=== PATIENT | male | born 1940 | race African-American/Black ===

== ENCOUNTER 2017-08-24 10:17 | Inpatient (IN) | payer OTHER ==
[2017-08-24] MEDS ORDERED: MORPHINE 4 MG/ML SYR ONE ×3 (10:59→12:52)
[2017-08-24] MEDS ORDERED: NA CHLORIDE 0.9% 1,000 ML ONE (11:00)
[2017-08-24] MEDS ORDERED: ONDANSETRON 4 MG/2 ML VIAL ONE (11:00)
[2017-08-24] MEDS ORDERED: ONDANSETRON 4 MG (ODT) TAB ONE (11:22)
[2017-08-24 11:25] LABS: Absolute Lymphocytes (CBC) 4.3 K/uL (0.7-4.9); Absolute Monocytes 7.7 K/uL (0.1-1.3); Basophils % 0.5 % (0-1.3); Eosinophils % 0.8 % (0-4.4); Hematocrit 36.9 % (39.6-49.0); Lymphocytes % 5.4 % (15.3-44.8); MCV 80.8 fL (80-100); MPV 8.5 fL (7.6-11.3); Monocytes % 9.8 % (3.3-12.3); RBC Red Blood Cell Count 4.57 M/uL (4.33-5.43)
[2017-08-24 11:36] LABS: Potassium 4.1 mEq/L (3.6-5.0)
[2017-08-24 11:42] LABS: Albumin 4.6 g/dL (3.2-5.5); Bilirubin Direct 0.3 mg/dL (0-0.2); Bilirubin Total 0.9 mg/dL (0.3-1.2); Protein, Total 7.8 g/dL (6.0-8.3)
--- NOTE | 2017-08-24 12:30 | RAD REPORT ---
EXAM DESCRIPTION: RAD - Abdomen 1 View (KUB) - 08/24/2017 11:42 am CLINICAL HISTORY: Abdominal pain and distention. COMPARISON: None. FINDINGS: Multiple dilated small bowel loops are seen in the central abdomen compatible with a mecha nical bowel obstruction. No pneumoperitoneum seen. No suspicious calcifications. No significant bony findings. Pacer/defibrillator wires are present. IMPRESSION: Mechanical small-bowel obstruction is suspected. CT is pending at the time of this dicta tion.
[2017-08-24 12:39] LABS: Anisocytosis 2+; Blood Morphology Comment NOTED (NOT SEEN); Platelet Estimate ADEQ; Platelets, Giant FEW
--- NOTE | 2017-08-24 14:11 | RAD REPORT ---
EXAM DESCRIPTION: CT - Abdomen Pelvis Wo Contrast - 08/24/2017 1:49 pm CLINICAL HISTORY: Abdominal pain mid abdominal pain times several hours. Nausea COMPARISON: 2013 cat scan X-ray August 24, 2017 TECHNIQUE: Computed axial tomography of the abdomen and pelvis was obtained. IV contrast was not req uested. Oral contrast was given All CT scans are performed using dose optimization technique as appropriate and may include automated exposure control or mA/KV adjustment according to patient size. FINDINGS: The evaluation of solid organs, and vessels is limited secondary to the lack of contrast administration. A couple of hepatic granulomata are seen. Spleen, pancreas and adrenals appear grossly normal. A couple tiny nonobstructing bilateral renal calculi are seen. There is no evidence of diverticulitis. The stomach is mildly distended. Contrast is present within the distal esophagus. The small bowel caliber is normal. Atherosclerotic changes are visualized. The prostate gland is mildly to moderately enlarged. IMPRESSION: Tiny nonobstructing renal calculi Mild gastric distention Contrast in the esophagus probably indicates GE reflux
[2017-08-24] MEDS ORDERED: ALBUTEROL 2.5 MG/3 ML NEB SOL ONE (15:29)
[2017-08-24] MEDS ORDERED: FUROSEMIDE 40 MG/4 ML VIAL ONE (15:29)
[2017-08-24] MEDS ORDERED: METOCLOPRAMIDE 10 MG/2mL INJ ONE (15:29)
--- NOTE | 2017-08-24 15:35 | ER ---
Nurse's Notes [facility] Name: Otoniel Aquino Age: 77 yrs Sex: Male : 1940 Arrival Date: 08/24/2017 Time: 10:20 Bed 7 Private MD: Diagnosis: Abdominal and pelvic pain;Gastroparesis;Gastric Distension Presentation: 08/24 10:21 Presenting complaint: Patient states: around 2 am today, i was awaken by the pain on hj the middle of my stomach, reports nausea, denies vomiting; pain is diffuse; denies constipation and diarrhea; denies fever and chills;. Transition of care: patient was not received from another setting of care. Onset of symptoms was August 24, 2017. Care prior to arrival: None. 10:21 Method Of Arrival: Ambulatory 10:21 Acuity: DANA 3 hj Triage Assessment: 10:25 General: Appears in no apparent distress. uncomfortable, Behavior is calm, cooperative, hj appropriate for age. Pain: Complains of pain in abdomen. GI: Reports lower abdominal pain, upper abdominal pain, nausea. Historical: - Allergies: 10:25 ROSALIE INHIBITORS; hj 10:25 Sulfa (Sulfonamide Antibiotics); hj - Home Meds: 10:25 allopurinol 300 mg Oral tab 1 tab once daily [Active]; atorvastatin 40 mg Oral tab 1 hj tab once daily [Active]; furosemide 40 mg Oral tab 1 tab 2 times per day [Active]; glipizide 10 mg Oral tab 1 tab 2 times per day [Active]; hydralazine 50 mg Oral tab three times a day [Active]; isosorbide dinitrate 10 mg Oral tab 1 tab 2 times per day [Active]; metoprolol succinate 200 mg Oral Tb24 1 tab once daily [Active]; omeprazole 20 mg Oral cpDR 1 cap once daily [Active]; saxagliptin 5 mg Oral once daily [Active]; spironolactone 25 mg Oral tab 1 tab once daily [Active]; tiotropium bromide inhalation once daily [Active]; warfarin 5 mg Oral tab 1 tab once daily [Active]; - PMHx: 10:25 CHF; Diabetes - NIDDM; Hypertension; hj - PSHx: 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 - Social history:: Patient/guardian denies using tobacco products, Smoking status: Patient/guardian denies using tobacco. Screenin:22 Abuse screen: Denies threats or abuse. Nutritional screening: No deficits noted. tl3 Tuberculosis screening: No symptoms or risk factors identified. Fall Risk None identified. Assessment: 10:25 GI: Bowel sounds Abdomen is tender to palpation. hj 11:22 General: Appears distressed, uncomfortable, well groomed, well developed, well tl3 nourished, Behavior is cooperative, appropriate for age, restless. Pain: Complains of pain in abdomen Pain currently is 10 out of 10 on a pain scale. Neuro: Level of Consciousness is awake, alert, obeys commands, Oriented to person, place, time, situation, Appropriate for age. Cardiovascular: Heart tones S1 S2 present Capillary refill < 3 seconds. Respiratory: Airway is patent Trachea midline Respiratory effort is even, labored, Respiratory pattern is regular, symmetrical. GI: Bowel sounds diminished in right upper quadrant, left upper quadrant, right lower quadrant and left lower quadrant. : No signs and/or symptoms were reported regarding the genitourinary system. EENT: No signs and/or symptoms were reported regarding the EENT system. Derm: No signs and/or symptoms reported regarding the dermatologic system. Musculoskeletal: No signs and/or symptoms reported regarding the musculoskeletal system. 11:46 Reassessment: CODEY Coleman notified of critical value, WBC [id number]. ss 12:50 Reassessment: Patient appears in no apparent distress at this time. No changes from tl3 previously documented assessment. Patient and/or family updated on plan of care and expected duration. Pain level reassessed. Patient is alert, oriented x 3, equal unlabored respirations, skin warm/dry/pink. family at bedside. Reassessment: Patient appears in no apparent distress at this time. 13:28 Reassessment: Patient appears in no apparent distress at this time. No changes from tl3 previously documented assessment. Patient and/or family updated on plan of care and expected duration. Pain level reassessed. Patient is alert, oriented x 3, equal unlabored respirations, skin warm/dry/pink. 14:30 Reassessment: Patient appears in no apparent distress at this time. No changes from tl3 previously documented assessment. Patient and/or family updated on plan of care and expected duration. Pain level reassessed. Patient is alert, oriented x 3, equal unlabored respirations, skin warm/dry/pink. pt comfortable at this time, family at bedside. 15:32 Reassessment: NG placed, pt tolerated procedure very well, immediate return of 500ml of tl3 gastric secretions. 16:30 Reassessment: Patient and/or family updated on plan of care and expected duration. Pain tl3 level reassessed. Patient is alert, oriented x 3, equal unlabored respirations, skin warm/dry/pink. pt feeling better, removed 600ml of gastric fluids. 18:33 Reassessment: attempted to wean pt off of non re-breather, O2 sats dropped to 88% on 3 tl3 L/M oxygen. placed back on non re-breather sats went up to 95% before being brought up to his room. Vital Signs: 10:25 BP 123 / 80; Pulse 93; Resp 18; Temp 99.1(TE); Pulse Ox 95% on R/A; Weight 75.75 kg; hj Height 5 ft. 9 in. (175.26 cm); Pain 10/10; 11:22 BP 145 / 63; Pulse 91; Resp 18; Pulse Ox 96% on R/A; tl3 13:35 BP 141 / 79; Pulse 96; Resp 21; Pulse Ox 95% on Non-rebreather mask; mh5 14:31 BP 141 / 91; Pulse 93; Resp 18; Pulse Ox 97% ; tl3 16:30 BP 124 / 78; Pulse 107; Resp 18; Pulse Ox 95% on Non-rebreather mask; tl3 18:33 BP 138 / 79; Pulse 96; Resp 22; Pulse Ox 95% on Non-rebreather mask; tl3 10:25 Body Mass Index 24.66 (75.75 kg, 175.26 cm) ED Course: 10:20 Patient arrived in ED. rg4 10:23 Triage completed. hj 10:25 Arm band placed on right wrist. hj 10:28 Matteo Tom PA is PHCP. jr8 10:28 Rohan Kothari MD is Attending Physician. jr8 10:37 Cary Kim, RN is Primary Nurse. tl3 10:40 Radiology exam delayed due to IV insertion attempt and/or patient not having sw appropriate IV at this time. 10:51 Note: stated they would call [id number] when ready. sw 11:12 Oral contrast given. sj 11:15 Inserted saline lock: 20 gauge in left antecubital area, using aseptic technique. Blood ss collected. 11:22 Appears restless. Awaiting lab results, Awaiting radiology results. tl3 11:22 Patient has correct armband on for positive identification. Placed in gown. Bed in low tl3 position. Call light in reach. Side rails up X 1. Adult w/ patient. administrative job titles on. Pulse ox on. NIBP on. Warm blanket given. 11:22 No provider procedures requiring assistance completed. Missed attempt(s): 22 gauge tl3 Bleeding controlled, band aid applied, catheter tip intact. 11:30 Lactate Sent. tl3 11:31 Basic Metabolic Panel Sent. tl3 11:31 CBC with Diff Sent. tl3 11:31 Creatinine for Radiology Sent. tl3 11:31 Hepatic Function Sent. tl3 11:31 Lipase Sent. tl3 11:53 EKG done, by earth science laboratory technician. reviewed by Matteo ALEGRE. at1 12:35 Oxygen administration via nasal cannula pt O2 levels dropped to 84%, Provider informed, tl3 nasal cannula placed at 3 L/M o2 sats up to 88%, gplaced on non re breather at 15 L/M with O2 sats increasing to 95%. 13:[address] via stretcher. tl3 13:49 CT completed. Patient tolerated procedure well. Patient moved back from CT. nj 15:05 Radiology exam delayed due to Procedure being performed. Asked to return in 10 minutes. kw1 15:31 NGT: inserted 16 Fr. via right nare. verified placement of air over stomach, Placement tl3 verified by X-ray, to intermittent suction. Returned gastric contents. 15:34 Klarissa Pacheco MD is Hospitalizing Provider. jr8 17:41 Urine Dipstick--Ancillary (enter results) Sent. tl3 18:04 Patient admitted, IV remains in place. tl3 Administered Medications: 11:10 Drug: Zofran 4 mg Route: PO; tl3 11:38 Follow up: Response: No adverse reaction tl3 11:15 Drug: morphine 4 mg Route: IVP; Infused Over: 3 mins; Site: left antecubital; tl3 11:37 Follow up: Response: No adverse reaction; Pain is decreased tl3 11:29 Drug: NS 0.9% 1000 ml Route: IV; Rate: 100 ml/hr; Site: left femoral; Delivery: Primary tl3 tubing; 11:30 CANCELLED (no IV access): Zofran 4 mg IVP once; over 2 minutes tl3 12:25 Drug: morphine 4 mg Route: IVP; Infused Over: 3 mins; Site: left forearm; tl3 14:20 Follow up: Response: Pain is decreased tl3 15:25 Drug: Reglan 10 mg Route: IVP; Infused Over: 3 mins; Site: left antecubital; tl3 16:28 Follow up: Response: No adverse reaction tl3 15:29 Drug: Lasix 40 mg Route: IVP; Infused Over: 3 mins; Site: left antecubital; tl3 16:28 Follow up: Response: No adverse reaction tl3 15:35 Drug: Albuterol 2.5 mg Route: Inhalation; tl3 Point of Care Testing: Blood Glucose: 17:57 Blood Glucose: 163 mg/dL; tl3 Ranges: Outcome: 15:34 Decision to Hospitalize by Provider. jr8 17:57 Admitted to Tele accompanied by tech, via stretcher, with oxygen. tl3 18:03 Condition: stable tl3 18:38 Patient left the ED. tl3 Signatures: Misti Lobato Shelby, RN RN Matteo Jacobsen PA PA jr8 Monica reaves, electrician control equipment EKG Tat1 Alexandra Echavarria Henry, RN RN hj Garcia, Rubi 4 Vlad Doty [facility] Orquidea Nieves 1 Cary Kim RN RN tl3 Corrections: (The following items were deleted from the chart) 10:27 10:25 Pulse 76bpm; Resp 18bpm; Pulse Ox 100% RA; Temp 99.1F Temporal; 75.75 kg; Height hj 5 ft. 9 in.; BMI: 24.6; Pain 10/; hj 18:33 18:32 Reassessment: Patient and/or family updated on plan of care and expected tl3 duration. Pain level reassessed. Patient is alert, oriented x 3, equal unlabored respirations, skin warm/dry/pink. pt just returned from CT, c/o increased pain tl3
--- NOTE | 2017-08-24 15:35 | EDPHYS ---
Physician Documentation [facility] Name: Otoniel Aquino Age: 77 yrs Sex: Male : 1940 Arrival Date: 08/24/2017 Time: 10:20 Bed 7 Private MD: ED Physician Rohan Kothari HPI: 08/24 10:49 This 77 yrs old Black Male presents to ER via Ambulatory with complaints of Abdominal jr8 Pain. 10:49 The patient presents with abdominal pain that is diffuse. Onset: The symptoms/episode jr8 began/occurred acutely, this morning. The symptoms radiate to back. Associated signs and symptoms: Pertinent positives: nausea. The symptoms are described as constant, dull. Modifying factors: The symptoms are alleviated by nothing, the symptoms are aggravated by nothing. Severity of pain: At its worst the pain was moderate in the emergency department the pain is unchanged. The patient has not experienced similar symptoms in the past. The patient has not recently seen a physician. Historical: - Allergies: 10:25 ROSALIE INHIBITORS; hj 10:25 Sulfa (Sulfonamide Antibiotics); hj - Home Meds: 10:25 allopurinol 300 mg Oral tab 1 tab once daily [Active]; atorvastatin 40 mg Oral tab 1 hj tab once daily [Active]; furosemide 40 mg Oral tab 1 tab 2 times per day [Active]; glipizide 10 mg Oral tab 1 tab 2 times per day [Active]; hydralazine 50 mg Oral tab three times a day [Active]; isosorbide dinitrate 10 mg Oral tab 1 tab 2 times per day [Active]; metoprolol succinate 200 mg Oral Tb24 1 tab once daily [Active]; omeprazole 20 mg Oral cpDR 1 cap once daily [Active]; saxagliptin 5 mg Oral once daily [Active]; spironolactone 25 mg Oral tab 1 tab once daily [Active]; tiotropium bromide inhalation once daily [Active]; warfarin 5 mg Oral tab 1 tab once daily [Active]; - PMHx: 10:25 CHF; Diabetes - NIDDM; Hypertension; hj - PSHx: 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 - Social history:: Patient/guardian denies using tobacco products, Smoking status: Patient/guardian denies using tobacco. ROS: 10:49 Eyes: Negative for injury, pain, redness, and discharge, ENT: Negative for injury, jr8 pain, and discharge, Neck: Negative for injury, pain, and swelling, Cardiovascular: Negative for chest pain, palpitations, and edema, Respiratory: Negative for shortness of breath, cough, wheezing, and pleuritic chest pain, Back: Negative for injury and pain, MS/Extremity: Negative for injury and deformity, Skin: Negative for injury, rash, and discoloration, Neuro: Negative for headache, weakness, numbness, tingling, and seizure. 10:49 Abdomen/GI: Positive for abdominal pain, nausea, Negative for vomiting, diarrhea, constipation, abdominal cramps, abdominal distension, anorexia, dysphagia, hematemesis, black/tarry stool, rectal pain, rectal bleeding, bowel incontinence, flatulence. Exam: 10:49 Eyes: Pupils equal round and reactive to light, extra-ocular motions intact. Lids and jr8 lashes normal. Conjunctiva and sclera are non-icteric and not injected. Cornea within normal limits. Periorbital areas with no swelling, redness, or edema. ENT: Nares patent. No nasal discharge, no septal abnormalities noted. Tympanic membranes are normal and external auditory canals are clear. Oropharynx with no redness, swelling, or masses, exudates, or evidence of obstruction, uvula midline. Mucous membranes moist. Cardiovascular: Regular rate and rhythm with a normal S1 and S2. No gallops, murmurs, or rubs. Normal PMI, no JVD. No pulse deficits. Respiratory: Lungs have equal breath sounds bilaterally, clear to auscultation and percussion. No rales, rhonchi or wheezes noted. No increased work of breathing, no retractions or nasal flaring. Back: No spinal tenderness. No costovertebral tenderness. Full range of motion. Skin: Warm, dry with normal turgor. Normal color with no rashes, no lesions, and no evidence of cellulitis. MS/ Extremity: Pulses equal, no cyanosis. Neurovascular intact. Full, normal range of motion. Neuro: Awake and alert, GCS 15, oriented to person, place, time, and situation. Cranial nerves II-XII grossly intact. Motor strength 5/5 in all extremities. Sensory grossly intact. Cerebellar exam normal. Normal gait. 10:49 Abdomen/GI: Inspection: abdomen appears normal, Bowel sounds: diminished, in all quadrants, Palpation: soft, in all quadrants, moderate abdominal tenderness, in the abdomen diffusely, Indicators: McBurney's point is not tender, Angel's sign is negative, Rovsing's sign is negative, Liver: tenderness, is not appreciated. Vital Signs: 10:25 BP 123 / 80; Pulse 93; Resp 18; Temp 99.1(TE); Pulse Ox 95% on R/A; Weight 75.75 kg; hj Height 5 ft. 9 in. (175.26 cm); Pain 10/10; 11:22 BP 145 / 63; Pulse 91; Resp 18; Pulse Ox 96% on R/A; tl3 13:35 BP 141 / 79; Pulse 96; Resp 21; Pulse Ox 95% on Non-rebreather mask; mh5 14:31 BP 141 / 91; Pulse 93; Resp 18; Pulse Ox 97% ; tl3 16:30 BP 124 / 78; Pulse 107; Resp 18; Pulse Ox 95% on Non-rebreather mask; tl3 18:33 BP 138 / 79; Pulse 96; Resp 22; Pulse Ox 95% on Non-rebreather mask; tl3 10:25 Body Mass Index 24.66 (75.75 kg, 175.26 cm) hj MDM: 10:28 Patient medically screened. jr8 15:29 Data reviewed: vital signs, nurses notes, lab test result(s), radiologic studies, CT jr8 scan, plain films, and as a result, I will admit patient. Data interpreted: Pulse oximetry: on room air is 97 %. Interpretation: normal. Counseling: I had a detailed discussion with the patient and/or guardian regarding: the historical points, exam findings, and any diagnostic results supporting the discharge/admit diagnosis, lab results, radiology results, the need for further work-up and treatment in the hospital. ED course: Dr. Pacheco came and saw patient. Accepted for gastroparesis and intractable abdominal pain . 08/24 10:28 Order name: Basic Metabolic Panel 8 08/24 10:28 Order name: CBC with Diff 8 08/24 10:28 Order name: Creatinine for Radiology 8 08/24 10:28 Order name: Hepatic Function 08/24 10:28 Order name: Lipase jr8 08/24 10:34 Order name: Lactate 8 08/24 11:35 Order name: Creatinine (Radiology Only); Complete Time: 11:43 EDMS 08/24 11:37 Order name: Basic Metabolic Panel; Complete Time: 11:43 EDMS 08/24 11:37 Order name: Lipase; Complete Time: 11:43 EDMS 08/24 11:38 Order name: Lactate; Complete Time: 11:43 EDMS 08/24 11:43 Order name: Liver (Hepatic) Function; Complete Time: 11:43 EDMS 08/24 11:46 Order name: CBC with Automated Diff; Complete Time: 12:43 EDMS 08/24 12:41 Order name: Manual Differential; Complete Time: 12:43 EDMS 08/24 16:52 Order name: Urine Dipstick--Ancillary (enter results) ms 08/24 10:35 Order name: XRAY KUB [facility] 08/24 11:04 Order name: CT Abd/Pelvis - W/Contrast 8 08/24 11:52 Order name: EKG; Complete Time: 11:52 3 08/24 12:31 Order name: RAD; Complete Time: 12:44 EDMS 08/24 14:13 Order name: CT; Complete Time: 14:13 EDMS 08/24 14:45 Order name: XRAY Chest (1 view) [facility] 08/24 15:53 Order name: RAD; Complete Time: 16:15 EDMS 08/24 17:12 Order name: Urine Dipstick-Ancillary; Complete Time: 17:20 EDMS 08/24 10:28 Order name: IV Saline Lock; Complete Time: 11:31 8 08/24 10:28 Order name: Labs collected and sent; Complete Time: 11:31 8 08/24 10:28 Order name: Urine Dipstick-Ancillary (obtain specimen); Complete Time: 16:41 8 08/24 10:28 Order name: EKG - Nurse/Tech; Complete Time: 11:51 8 08/24 14:45 Order name: NG Tube; Complete Time: 15:34 jr8 Administered Medications: 11:10 Drug: Zofran 4 mg Route: PO; tl3 11:38 Follow up: Response: No adverse reaction tl3 11:15 Drug: morphine 4 mg Route: IVP; Infused Over: 3 mins; Site: left antecubital; tl3 11:37 Follow up: Response: No adverse reaction; Pain is decreased tl3 11:29 Drug: NS 0.9% 1000 ml Route: IV; Rate: 100 ml/hr; Site: left femoral; Delivery: Primary tl3 tubing; 11:30 CANCELLED (no IV access): Zofran 4 mg IVP once; over 2 minutes tl3 12:25 Drug: morphine 4 mg Route: IVP; Infused Over: 3 mins; Site: left forearm; tl3 14:20 Follow up: Response: Pain is decreased tl3 15:25 Drug: Reglan 10 mg Route: IVP; Infused Over: 3 mins; Site: left antecubital; tl3 16:28 Follow up: Response: No adverse reaction tl3 15:29 Drug: Lasix 40 mg Route: IVP; Infused Over: 3 mins; Site: left antecubital; tl3 16:28 Follow up: Response: No adverse reaction tl3 15:35 Drug: Albuterol 2.5 mg Route: Inhalation; tl3 Point of Care Testing: Blood Glucose: 17:57 Blood Glucose: 163 mg/dL; tl3 Ranges: Critical Glucose Levels:Adult <50 mg/dl or >400 mg/dl <40 mg/dl or >180 mg/dl Disposition: 18:46 Co-signature as Attending Physician, Rohan Kothari MD. rn Disposition: 08/24/17 15:34 Hospitalization ordered by Klarissa Pacheco for Observation. Preliminary diagnosis are Abdominal and pelvic pain, Gastroparesis, Gastric Distension . - Bed requested for Telemetry/MedSurg (observation). - Status is Observation. tl3 - Condition is Stable. - Problem is new. - Symptoms have improved. UTI on Admission? No Signatures: Dispatcher [employer] EDMarli Cha RN RN dw Nieto, Roman, MD MD rn Roszak, Josh, PA PA jr8 Max Hassan RN RN hj Lowrey, Tammy, RN RN tl3 Corrections: (The following items were deleted from the chart) 11:30 10:35 Zofran 4 mg IVP once; over 2 minutes ordered. jr8 tl3
--- NOTE | 2017-08-24 15:51 | P.HP ---
Certification for Inpatient Patient admitted to: Observation With expected LOS: <2 Midnights Patient will require the following post-hospital care: None Practitioner: I am a practitioner with admitting privileges, knowledge of patient current condition, hospital course, and medical plan of care. Services: Services provided to patient in accordance with Admission requirements found in Title 42 Section 412.3 of the Code of Federal Regulations Patient History Date of Service: 08/24/17 Primary Care Provider: None Reason for admission: Intractable Nausea and vomitting History of Present Illness: This is a 77-year-old male with significant past medical history of high blood pressure, diabetes, CLL, status post pacemaker placement who presented to the ED complaining of having some nausea vomiting and abdominal pain. Patient stated that the abdominal pain is generalized and started about 2-3 days ago it got progressively worse. Pain is intermittent and is more in the epigastric area than the other areas. Pain is dull in nature and does not radiate anywhere else. Patient also noted that he has been nauseous and is unable to tolerate any p.o. intake and had vomiting x1 at home as well. In the ED patient had a KUB done which was consistent with possible SBO and his abdominal CT which was concerning for gastric distention and no SBO. Medicine team was consulted to admit the patient for intractable nausea and vomiting along with gastric distention. Allergies ROSALIE Inhibitors Allergy (Verified 12/09/13 14:20) Shortness of breath Sulfa (Sulfonamide Antibiotics) Allergy (Unverified 01/28/17 13:02) Unknown Home Medications: Allopurinol 300 mg PO DAILY 01/28/17 Atorvastatin Calcium 20 mg PO BEDTIME 01/28/17 Glipizide [Glucotrol] 10 mg PO BID 01/28/17 Hydralazine HCl 50 mg PO TID 01/28/17 Isosorbide Dinitrate 10 mg PO BID 01/28/17 Metoprolol Succinate [Toprol Xl] 200 mg PO DAILY 01/28/17 Omeprazole 20 mg PO DAILY 01/28/17 Saxagliptin HCl [Onglyza] 5 mg PO DAILY 01/28/17 Spironolactone 25 mg PO DAILY 01/28/17 Tiotropium [Spiriva Handihaler*] 18 mcg IH DAILY 01/28/17 Warfarin Sodium 5 mg PO DAILY 01/28/17 Bosutinib [Bosulif] 400 mg PO DAILY 01/29/17 Furosemide 40 mg PO DAILY #30 01/29/17 Spironolactone [Aldactone*] 12.5 mg PO DAILY #15 tab 01/29/17 - Past Medical/Surgical History Diabetic: Yes -: HTN -: NEUROMUSCULAR DISEASE -: CML -: CHF -: PACEMAKER -: CATARACT SX R EYE -: VASCULAR SURGERY R LEG -: RIGHT BELOW KNEE AMPUTEE - Family History Father -: Heart disease, Hypertension Mother -: Heart disease, Hypertension, Diabetes - Social History Alcohol use: No CD- Drugs: No Caffeine use: Yes Review of Systems General: As per HPI Physical Examination - Physical Exam General: Alert, In no apparent distress, Cachectic HEENT: Atraumatic Neck: Supple Respiratory: Normal air movement, Crackles/rales Cardiovascular: Regular rate/rhythm, Normal S1 S2 Gastrointestinal: Normal bowel sounds, Distended, Tenderness Musculoskeletal: No tenderness Integumentary: No rashes Neurological: Normal speech, Normal strength at 5/5 x4 extr, Normal tone, Normal affect Lymphatics: No axilla or inguinal lymphadenopathy - Studies Laboratory Data (last 24 hrs) 08/24/17 11:15: Creatinine 1.56 H 08/24/17 11:15: WBC 79.0 H*, Hgb 11.9 L, Hct 36.9 L, Plt Count 526 H 08/24/17 11:15: Sodium 139, Potassium 4.1, BUN 30 H, Creatinine 1.56 H, Glucose 161 H, Total Bilirubin 0.9, AST 49 H, ALT 22, Alkaline Phosphatase 70, Lipase 20 L Assessment and Plan - Problems (Diagnosis) (1) Abdominal pain Current Visit: Yes Status: Acute Plan: Generalized Abd pain. Epigastric > then other area -KUB with possible SBO -CT with Gastric Distention -Most likely 2/2 Gastropresis -NG tube, NPO and Pain meds. -Will get Gastric Emptying study Qualifiers: Abdominal location: generalized Qualified Code(s): R10.84 - Generalized abdominal pain (2) Intractable nausea and vomiting Current Visit: Yes Status: Acute Plan: Most likely 2.2 to gastropresis -NPO -Zofran PRN and Reglan Qualifiers: Vomiting type: unspecified Qualified Code(s): R11.2 - Nausea with vomiting , unspecified (3) Gastric distention Current Visit: Yes Status: Acute Plan: See # 1 (4) Congestive heart failure Current Visit: No Status: Chronic Plan: Xray with mild CHF and pulmonary Edema. BNP pending -Lasix 40mg BID -Check BNP -Get ECHO Qualifiers: Qualified Code(s): I50.9 - Heart failure, unspecified (5) Diabetes Current Visit: No Status: Chronic Plan: Will Restart Home medication. Qualifiers: Diabetes mellitus type: type 2 Diabetes mellitus retirement insulin use: with retirement use Diabetes mellitus complication status: without complication Qualified Code(s): E11.9 - Type 2 diabetes mellitus without complications; Z79.4 - intermodal owner operator truck driver (current) use of insulin (6) Hypertension Current Visit: No Status: Chronic Plan: Will restart home medication Qualifiers: Hypertension type: essential hypertension Qualified Code(s): I10 - Essential (primary) hypertension (7) Status post placement of cardiac pacemaker Current Visit: No Status: Chronic Plan: Stable. (8) CLL (chronic lymphocytic leukemia) Current Visit: Yes Status: Chronic Plan: In remission Discharge Plan: Home Plan to discharge in: 24 Hours - Advance Directives Does patient have a Living Will: No Does patient have a Durable POA for Healthcare: No - Code Status/Comfort Care Code Status Assessed: Yes Critical Care: No
--- NOTE | 2017-08-24 15:52 | RAD REPORT ---
EXAM DESCRIPTION: Amita Single View08/24/2017 3:39 pm CLINICAL HISTORY: Chest pain COMPARISON: January 2017 FINDINGS: Mild bilateral pulmonary opacities are present. The heart is mildly to moderately enlarge d. Pacemaker leads are in place. A nasogastric tube is present within the gastric fundus IMPRESSION: Mild bilateral pulmonary opacities may indicate mild CHF
[2017-08-24 17:11] LABS: Urine Blood NEGATIVE (NEG); Urine Glucose NEGATIVE (NEG); Urine Protein NEGATIVE (NEG); Urine Specific Gravity 1.015 (1.005-1.030)
--- NOTE | 2017-08-24 17:14 | EKG ---
Test Date: 2017-08-24 Test Time: 10:47:43 Dolly Driver: ANNY MEASUREMENT RESULTS: Intervals: Rate: 86 CO: 224 QRSD: 100 QT: 406 QTc: 485 [place]: P: 58 CO: 224 QRS: 18 T: 131 INTERPRETIVE STATEMENTS: Sinus rhythm with 1st degree AV block Minimal voltage criteria for LVH, may be normal variant T wave abnormality, consider inferolateral ischemia Prolonged QT Abnormal ECG Compared to ECG 01/29/2017 07:26:12 No significant changes Electronically Signed On 08-24-17 17:13:08 CDT by Phoenix Ovalles
[2017-08-24] MEDS ORDERED: SODIUM CHLORIDE 0.9% 10ML INJ IV PRN (18:26)
[2017-08-24] MEDS: INSULIN -REGULAR HUMAN 50 UNIT/0.5 ML ML SQ SCH ×2 (18:26→21:00)
[2017-08-24] MEDS ORDERED: ONDANSETRON 4 MG (ODT) TAB PO PRN (18:26)
[2017-08-24] MEDS: NA CHLORIDE 0.9% 1,000 ML IV SCH ×2 (18:26→21:37)
[2017-08-24] MEDS ORDERED: GLUCAGON 1 MG/VIAL IM PRN (18:41)
[2017-08-24] MEDS ORDERED: D50W 25 GM/50 ML SYRINGE IV PRN (18:41)
[2017-08-24] MEDS ORDERED: FENTANYL CITR 100 MCG/2 ML IV PRN (20:44)
[2017-08-24] MEDS: METOCLOPRAMIDE 10 MG/2mL INJ IV SCH (21:59)
[2017-08-25] MEDS: NA CHLORIDE 0.9% 1,000 ML IV SCH ×3 (04:26→21:23)
[2017-08-25 05:46] LABS: Albumin 4.2 g/dL (3.2-5.5); Bilirubin Total 0.9 mg/dL (0.3-1.2); Magnesium 1.9 mg/dL (1.8-2.5); Phosphorus 4.6 mg/dL (2.5-4.3); Potassium 4.4 mEq/L (3.6-5.0); Protein, Total 6.9 g/dL (6.0-8.3)
[2017-08-25 07:23] LABS: Absolute Lymphocytes (CBC) 4.7 K/uL (0.7-4.9); Absolute Monocytes 9.6 K/uL (0.1-1.3); Absolute Neutrophil 69.9 K/uL (1.8-8.0); Basophils % 0.3 % (0-1.3); Eosinophils % 0.8 % (0-4.4); Hematocrit 37.3 % (39.6-49.0); Lymphocytes % 5.6 % (15.3-44.8); MCH 25.4 pg (27.0-35.0); MCV 82.3 fL (80-100); MPV 8.9 fL (7.6-11.3); Monocytes % 11.2 % (3.3-12.3); RBC Red Blood Cell Count 4.53 M/uL (4.33-5.43)
[2017-08-25 07:25] LABS: Anisocytosis 3+; Blood Morphology Comment NOTED (NOT SEEN); Platelet Estimate INCR; Platelets, Giant PRESENT
[2017-08-25] MEDS: INSULIN -REGULAR HUMAN 50 UNIT/0.5 ML ML SQ SCH ×4 (07:30→21:00)
[2017-08-25] MEDS: PANTOPRAZOLE 40 MG INJ IVP SCH (09:54)
[2017-08-25] MEDS: METOCLOPRAMIDE 10 MG/2mL INJ IV SCH ×5 (09:54→21:25)
--- NOTE | 2017-08-25 10:09 | RAD REPORT ---
EXAM DESCRIPTION: NM - Gastric Emptying Study - 08/25/2017 8:48 am CLINICAL HISTORY: Gastroparesis/abdominal pain. TECHNIQUE: 1 millicurie Technetium Sulfur Colloid was administered in an egg meal. Anterior and post erior whole body images of the stomach were obtained for 120 minutes. FINDINGS: The half-time of gastric emptying equals 109 minutes. Normal values 45 minutes to 110 [place] harshad. IMPRESSION: Normal half-time of gastric emptying of 109 minutes.
--- NOTE | 2017-08-25 14:03 | P.PN ---
Subjective Date of Service: 08/25/17 Primary Care Provider: None Chief Complaint: Intractable Nausea and vomitting Patient seen and examined at bedside with RN. Case reviewed. Imaging studies reviewed this morning as well. Currently patient is still complaining of having some nausea. It is NPO at this time. States he feels much better but still has abdominal pain and nausea Review of Systems General: As per HPI Physical Examination - Vital Signs Temperature: 97.8 F Blood Pressure: 134/75 Pulse: 86 Respirations: 18 Pulse Ox (%): 77 - Physical Exam General: Alert, In no apparent distress, Oriented x3 HEENT: Atraumatic, PERRLA, EOMI Neck: Supple, JVD not distended Respiratory: Clear to auscultation bilaterally, Normal air movement Cardiovascular: Regular rate/rhythm, Normal S1 S2 Gastrointestinal: Normal bowel sounds, No tenderness, Distended Musculoskeletal: No tenderness Integumentary: No rashes Neurological: Normal speech, Normal tone, Normal affect Lymphatics: No axilla or inguinal lymphadenopathy - Studies Medications List Reviewed: Yes Assessment & Plan - Problems (Diagnosis) (1) Abdominal pain Onset Date: 08/25/17 Current Visit: Yes Status: Acute Plan: Generalized Abd pain. Epigastric > then other area -KUB with possible SBO -CT with Gastric Distention -Most likely 2/2 Gastropresis -NG tube, NPO and Pain meds. -Gastric Emptying + for Delayed Emptying. -Will consult GI at this time. Qualifiers: Abdominal location: generalized Qualified Code(s): R10.84 - Generalized abdominal pain (2) Intractable nausea and vomiting Onset Date: 08/25/17 Current Visit: Yes Status: Acute Plan: Most likely 2.2 to gastropresis. still nauseous -NPO -Zofran PRN and Reglan Qualifiers: Vomiting type: unspecified Qualified Code(s): R11.2 - Nausea with vomiting , unspecified (3) Gastric distention Onset Date: 08/25/17 Current Visit: Yes Status: Acute Plan: See # 1 (4) Congestive heart failure Onset Date: 08/25/17 Current Visit: Yes Status: Chronic Plan: Xray with mild CHF and pulmonary Edema. -Lasix 40mg BID -BNP at 440 today -ECHO pending Qualifiers: Qualified Code(s): I50.9 - Heart failure, unspecified (5) Diabetes Onset Date: 08/25/17 Current Visit: Yes Status: Chronic Plan: Will Restart Home medication. Qualifiers: Diabetes mellitus type: type 2 Diabetes mellitus equipment operator intermodal yard insulin use: with equipment operator intermodal yard use Diabetes mellitus complication status: without complication Qualified Code(s): E11.9 - Type 2 diabetes mellitus without complications; Z79.4 - rat exterminator (current) use of insulin (6) Hypertension Onset Date: 08/25/17 Current Visit: Yes Status: Chronic Plan: Will restart home medication Qualifiers: Hypertension type: essential hypertension Qualified Code(s): I10 - Essential (primary) hypertension (7) Status post placement of cardiac pacemaker Current Visit: Yes Status: Chronic Plan: Stable. (8) CLL (chronic lymphocytic leukemia) Onset Date: 08/25/17 Current Visit: Yes Status: Chronic Plan: In remission Discharge Plan: Home Plan to discharge in: 24 Hours - Code Status/Comfort Care Code Status Assessed: Yes Critical Care: No
[2017-08-25] MEDS: HYDRALAZINE HCL 25 MG TABLET PO SCH ×2 (14:19→21:25)
[2017-08-25] MEDS: FUROSEMIDE 40 MG TABLET PO SCH ×2 (14:48→21:24)
[2017-08-25] MEDS ORDERED: WARFARIN SODIUM 5 MG TAB PO SCH (17:00)
[2017-08-25 17:32] LABS: Protime INR 3.47
[2017-08-25] MEDS: ATORVASTATIN 20 MG TAB PO SCH (21:24)
[2017-08-25] MEDS: ISOSORBIDE DINIT 5 MG TAB PO SCH (21:24)
[2017-08-26 05:44] LABS: Absolute Lymphocytes (CBC) 3.2 K/uL (0.7-4.9); Absolute Monocytes 5.4 K/uL (0.1-1.3); Absolute Neutrophil 69.3 K/uL (1.8-8.0); Basophils % 0.3 % (0-1.3); Eosinophils % 0.8 % (0-4.4); Hematocrit 37.4 % (39.6-49.0); Lymphocytes % 4.1 % (15.3-44.8); MCH 25.7 pg (27.0-35.0); MCV 81.2 fL (80-100); MPV 8.5 fL (7.6-11.3); Monocytes % 6.9 % (3.3-12.3)
[2017-08-26 06:18] LABS: Albumin 3.8 g/dL (3.2-5.5); Potassium 3.7 mEq/L (3.6-5.0); Protein, Total 6.5 g/dL (6.0-8.3)
[2017-08-26 06:23] LABS: Bilirubin Total 1.3 mg/dL (0.3-1.2); Magnesium 1.5 mg/dL (1.8-2.5); Phosphorus 2.7 mg/dL (2.5-4.3)
[2017-08-26] MEDS: INSULIN -REGULAR HUMAN 50 UNIT/0.5 ML ML SQ SCH ×4 (07:30→21:00)
[2017-08-26] MEDS: ALLOPURINOL 300 MG TAB PO SCH (08:50)
[2017-08-26] MEDS: PANTOPRAZOLE 40 MG INJ IVP SCH (08:50)
[2017-08-26] MEDS: METOCLOPRAMIDE 10 MG/2mL INJ IV SCH (08:50)
[2017-08-26] MEDS: HYDRALAZINE HCL 25 MG TABLET PO SCH ×3 (08:50→21:01)
[2017-08-26] MEDS: ISOSORBIDE DINIT 5 MG TAB PO SCH ×2 (08:51→21:01)
[2017-08-26] MEDS: FUROSEMIDE 40 MG TABLET PO SCH ×2 (08:51→17:24)
[2017-08-26] MEDS: METOPROLOL XL 100 MG TAB PO SCH (08:51)
[2017-08-26] MEDS: SPIRONOLACTONE 25 MG TABLET PO SCH (08:52)
[2017-08-26] MEDS: BOSUTINIB 400 MG PO SCH (09:00)
[2017-08-26] MEDS ORDERED: FUROSEMIDE 40 MG TABLET PO SCH ×2 (09:00)
[2017-08-26] MEDS: SAXAGLIPTIN HCL 5 MG PO SCH (09:00)
[2017-08-26] MEDS: NA CHLORIDE 0.9% 1,000 ML IV SCH ×2 (11:01→21:15)
[2017-08-26 13:13] LABS: Protime INR 3.56
[2017-08-26 14:26] LABS: Arterial Blood Carboxyhemoglob 1.3 % (0-1.5); Blood Gas Oxyhemoglobin 84.1 % (94-97); Blood O2 Saturation 86.7 % (92-98.5)
--- NOTE | 2017-08-26 14:43 | P.PN ---
Subjective Date of Service: 08/26/17 Primary Care Provider: None Chief Complaint: Intractable Nausea and vomitting Patient seen and examined at bedside with RN. Case reviewed. Pt denies having any nausea. But today pt has been in Respiratory Distress. On Non rebrether saturating at 88%. Review of Systems General: As per HPI Physical Examination - Vital Signs Temperature: 97.5 F Blood Pressure: 114/62 Pulse: 72 Respirations: 18 Pulse Ox (%): 80 - Physical Exam General: Alert, Oriented x3, Mild distress HEENT: Atraumatic Neck: Supple Respiratory: Normal air movement, Rhonchi/gurgles Cardiovascular: Regular rate/rhythm, Normal S1 S2 Gastrointestinal: Normal bowel sounds, Soft and benign, Non-distended, No tenderness Musculoskeletal: No tenderness Integumentary: No rashes Neurological: Normal speech, Normal tone, Normal affect Lymphatics: No axilla or inguinal lymphadenopathy - Studies Medications List Reviewed: Yes Assessment & Plan - Problems (Diagnosis) (1) Abdominal pain Onset Date: 08/25/17 Current Visit: Yes Status: Acute Plan: Generalized Abd pain. Epigastric > then other area -CT with Gastric Distention -Most likely 2/2 Gastropresis -NG tube removed. Now on FLD -Gastric Emptying + for Delayed Emptying. -GI consulted. Appreciated Reccs -Regland 5mg PO BID Qualifiers: Abdominal location: generalized Qualified Code(s): R10.84 - Generalized abdominal pain (2) Intractable nausea and vomiting Onset Date: 08/25/17 Current Visit: Yes Status: Acute Plan: Most likely 2.2 to gastropresis. Not Nauseous now. -Zofran PRN and Reglan Qualifiers: Vomiting type: unspecified Qualified Code(s): R11.2 - Nausea with vomiting , unspecified (3) Gastric distention Onset Date: 08/25/17 Current Visit: Yes Status: Acute Plan: See # 1 (4) Respiratory distress Current Visit: Yes Status: Acute Plan: Respiratory Distress. On a Non Rebreather Mask today -ABG with Hypoxia -Xray pending -Syonereid -Pulm Consulted. Awaiting reccs. (5) Congestive heart failure Onset Date: 08/25/17 Current Visit: Yes Status: Chronic Plan: Xray with mild CHF and pulmonary Edema. -Lasix 40mg BID -ECHO pending Qualifiers: Qualified Code(s): I50.9 - Heart failure, unspecified (6) Diabetes Onset Date: 08/25/17 Current Visit: Yes Status: Chronic Plan: Will Restart Home medication. 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 (9) CLL (chronic lymphocytic leukemia) Onset Date: 08/25/17 Current Visit: Yes Status: Chronic Plan: In remission
--- NOTE | 2017-08-26 19:35 | RAD REPORT ---
EXAM DESCRIPTION: Amita Pa And Lat (2 Views)08/26/2017 7:24 pm CLINICAL HISTORY: Shortness of breath COMPARISON: August 24 FINDINGS: Partial resolution in mild bilateral social opacities has occurred. A small right pleural effusion is present. The heart remains enlarged. Pacemaker leads are in place. Humeral infarcts are unchanged IMPRESSION: Improvement in mild CHF
[2017-08-26] MEDS: METOCLOPRAMIDE 5 MG TAB PO SCH (21:01)
[2017-08-26] MEDS: predniSONE 20 MG TAB PO SCH (21:01)
[2017-08-26] MEDS: ATORVASTATIN 20 MG TAB PO SCH (21:01)
[2017-08-27 06:34] LABS: Absolute Lymphocytes (CBC) 2.9 K/uL (0.7-4.9); Absolute Monocytes 4.4 K/uL (0.1-1.3); Absolute Neutrophil 66.7 K/uL (1.8-8.0); Basophils % 0.7 % (0-1.3); Eosinophils % 1.1 % (0-4.4); Hematocrit 35.7 % (39.6-49.0); Lymphocytes % 3.9 % (15.3-44.8); MCH 25.8 pg (27.0-35.0); MCV 81.1 fL (80-100); MPV 8.9 fL (7.6-11.3); Monocytes % 5.9 % (3.3-12.3)
[2017-08-27] MEDS: NA CHLORIDE 0.9% 1,000 ML IV SCH ×2 (06:44→16:26)
[2017-08-27 06:58] LABS: Albumin 3.3 g/dL (3.2-5.5); Bilirubin Total 1.3 mg/dL (0.3-1.2); Magnesium 1.7 mg/dL (1.8-2.5); Phosphorus 4.1 mg/dL (2.5-4.3); Protein, Total 5.8 g/dL (6.0-8.3)
[2017-08-27] MEDS: INSULIN -REGULAR HUMAN 50 UNIT/0.5 ML ML SQ SCH ×4 (07:30→21:56)
[2017-08-27] MEDS: PANTOPRAZOLE 40 MG INJ IVP SCH (08:13)
[2017-08-27] MEDS: METOCLOPRAMIDE 5 MG TAB PO SCH ×2 (08:13→21:16)
[2017-08-27] MEDS: ISOSORBIDE DINIT 5 MG TAB PO SCH ×2 (08:13→21:18)
[2017-08-27] MEDS: predniSONE 20 MG TAB PO SCH ×2 (08:13→21:15)
[2017-08-27] MEDS: FUROSEMIDE 40 MG TABLET PO SCH ×2 (08:14→16:31)
[2017-08-27] MEDS: SPIRONOLACTONE 25 MG TABLET PO SCH (08:14)
[2017-08-27] MEDS: HYDRALAZINE HCL 25 MG TABLET PO SCH ×3 (08:14→21:18)
[2017-08-27] MEDS: METOPROLOL XL 100 MG TAB PO SCH (08:14)
[2017-08-27] MEDS: ALLOPURINOL 300 MG TAB PO SCH (08:14)
[2017-08-27] MEDS: BOSUTINIB 400 MG PO SCH (09:00)
[2017-08-27] MEDS: SAXAGLIPTIN HCL 5 MG PO SCH (09:00)
--- NOTE | 2017-08-27 10:59 | P.CNS ---
Date of Consult: 08/27/17 Reason for Consult: Hypoxemia Primary Care Provider: None Chief Complaint: Intractable Nausea and vomitting History of Present Illness: Patient is 77 years of age admitted with abdominal discomfort in the epigastrium follows up at the [facility] has some nausea vomiting start about 2-3 days ago intermittent the time of my evaluation it had resolved denies any pulmonary complaints although he does takes Spiriva at home he is not sure what I quit smoking a very long time ago currently on a non-rebreather patient is on Coumadin fully anti coagulated diagnosis of gastroparesis Allergies ROSALIE Inhibitors Allergy (Verified 08/26/17 08:00) Shortness of breath Sulfa (Sulfonamide Antibiotics) Allergy (Verified 08/26/17 08:00) Unknown Home Medications: Allopurinol 300 mg PO DAILY 01/28/17 Atorvastatin Calcium 20 mg PO BEDTIME 01/28/17 Glipizide [Glucotrol] 10 mg PO BID 01/28/17 Hydralazine HCl 50 mg PO TID 01/28/17 Isosorbide Dinitrate 10 mg PO BID 01/28/17 Metoprolol Succinate [Toprol Xl] 200 mg PO DAILY 01/28/17 Omeprazole 20 mg PO DAILY 01/28/17 Saxagliptin HCl [Onglyza] 5 mg PO DAILY 01/28/17 Spironolactone 25 mg PO DAILY 01/28/17 Tiotropium [Spiriva Handihaler*] 18 mcg IH DAILY 01/28/17 Warfarin Sodium 5 mg PO DAILY 01/28/17 Bosutinib [Bosulif] 400 mg PO DAILY 01/29/17 Furosemide 40 mg PO DAILY #30 01/29/17 Spironolactone [Aldactone*] 12.5 mg PO DAILY #15 tab 01/29/17 - Past Medical/Surgical History Diabetic: Yes -: HTN -: NEUROMUSCULAR DISEASE -: CML -: CHF -: PACEMAKER -: CATARACT SX R EYE -: VASCULAR SURGERY R LEG -: RIGHT BELOW KNEE AMPUTEE - Family History Father Medical History: Heart disease, Hypertension Mother Medical History: Heart disease, Hypertension, Diabetes - Social History Smoking Status: Never smoker Alcohol use: No CD- Drugs: No Caffeine use: Yes Place of Residence: Home Review of Systems General: Weakness Gastrointestinal: As per HPI Physical Examination Temp Pulse Resp BP Pulse Ox 98.6 F 63 20 121/52 L 90 L 08/27/17 08:00 08/27/17 08:14 08/27/17 08:00 08/27/17 08:14 08/27/17 08:00 General: Alert, Oriented x3 HEENT: Atraumatic Neck: Supple Respiratory: Clear to auscultation bilaterally Cardiovascular: No edema, Regular rate/rhythm Gastrointestinal: Normal bowel sounds, Soft and benign Laboratory Data (last 24 hrs) 08/26/17 12:49: PT 42.5 H, INR 3.56 - Problems (1) Hypoxemia Current Visit: Yes Status: Acute Plan: Patient is 77 years of age admitted with abdominal discomfort he has chronic lymphocytic leukemia and is been followed up at the [facility] also anti coagulated with warfarin INR is therapeutic patient has diabetes and hypertension chest x- ray shows a pacemaker otherwise clear was hypoxic on admission mild renal insufficiency is white count was elevated from his CLL not sure why so hypoxic plan to titrate sat to 90% repeat ABGs does have gastroparesis no clinical evidence of sepsis
--- NOTE | 2017-08-27 12:06 | P.PN ---
Subjective Date of Service: 08/27/17 Primary Care Provider: None Chief Complaint: Intractable Nausea and vomitting Patient seen and examined at bedside with RN. Case reviewed. Pt denies having any nausea. Tolerating diet well now. Currently having Respiratory distress and on Non-breather right now Saturating at 90%. Review of Systems 10-point ROS is otherwise unremarkable Physical Examination - Vital Signs Temperature: 98.6 F Blood Pressure: 121/52 Pulse: 63 Respirations: 20 Pulse Ox (%): 90 - Physical Exam General: Alert, Oriented x3, Mild distress HEENT: Atraumatic, PERRLA, EOMI Neck: Supple, JVD not distended Respiratory: Normal air movement, Rhonchi/gurgles Cardiovascular: Regular rate/rhythm, Normal S1 S2 Gastrointestinal: Normal bowel sounds, Soft and benign, Non-distended, No tenderness Musculoskeletal: No tenderness Integumentary: No rashes Neurological: Normal speech, Normal tone, Normal affect Lymphatics: No axilla or inguinal lymphadenopathy - Studies Laboratory Data (last 24 hrs) 08/26/17 12:49: PT 42.5 H, INR 3.56 Medications List Reviewed: Yes Assessment & Plan - Problems (Diagnosis) (1) Abdominal pain Onset Date: 08/25/17 Current Visit: Yes Status: Acute Plan: Improved now. No nausea and Vomiting. Tolerating Diet well. -CT with Gastric Distention -Most likely 2/2 Gastropresis -NG tube removed. Now on FLD -Gastric Emptying + for Delayed Emptying. -GI consulted. Appreciated Reccs -Reglan 5mg PO BID Qualifiers: Abdominal location: generalized Qualified Code(s): R10.84 - Generalized abdominal pain (2) Intractable nausea and vomiting Onset Date: 08/25/17 Current Visit: Yes Status: Acute Plan: Most likely 2.2 to gastropresis. Not Nauseous now. -Zofran PRN and Reglan Qualifiers: Vomiting type: unspecified Qualified Code(s): R11.2 - Nausea with vomiting , unspecified (3) Gastric distention Onset Date: 08/25/17 Current Visit: Yes Status: Acute Plan: See # 1 (4) Respiratory distress Current Visit: Yes Status: Acute Plan: Respiratory Distress. On a Non Re-breather Mask today -ABG with Hypoxia -Xray WNL -CT Chest pending. -Duonebs -Pulm Consulted. (5) Congestive heart failure Onset Date: 08/25/17 Current Visit: Yes Status: Chronic Plan: Xray with mild CHF and pulmonary Edema. -Lasix 40mg BID -ECHO pending Qualifiers: Qualified Code(s): I50.9 - Heart failure, unspecified (6) Diabetes Onset Date: 08/25/17 Current Visit: Yes Status: Chronic Plan: Will Restart Home medication. 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 (9) CLL (chronic lymphocytic leukemia) Onset Date: 08/25/17 Current Visit: Yes Status: Chronic Plan: In remission
[2017-08-27 12:35] LABS: Protime INR 3.14
--- NOTE | 2017-08-27 12:53 | RAD REPORT ---
EXAM DESCRIPTION: CT - Thorax Wo Con CLINICAL HISTORY: Chest pain, low oxygen saturation. COMPARISON: 01/28/2017 FINDINGS: Mild COPD is suspected. Mild linear subsegmental atelectasis in both posterior lung bases. A small right pleural effusion is noted. No pneumothorax. The heart is mildly enlarged in size with a dual lead pacer device present. No axillary, mediastinal or hilar adenopathy. No concerning bony finding. No gross upper abdominal finding. All CT scans are performed using dose optimization technique as appropriate and may include automated exposure control or mA/KV adjustment according to patient size. IMPRESSION: Small right pleural effusion. Mild COPD.
[2017-08-27 15:01] LABS: Arterial Blood Carboxyhemoglob 1.1 % (0-1.5); Blood Gas Oxyhemoglobin 79.8 % (94-97); Blood O2 Saturation 82.2 % (92-98.5)
[2017-08-27] MEDS: ATORVASTATIN 20 MG TAB PO SCH (21:16)
[2017-08-28] MEDS: NA CHLORIDE 0.9% 1,000 ML IV SCH (02:26)
[2017-08-28 05:09] LABS: Protime INR 3.96
[2017-08-28 05:13] LABS: Absolute Lymphocytes (CBC) 2.5 K/uL (0.7-4.9); Absolute Monocytes 4.2 K/uL (0.1-1.3); Absolute Neutrophil 73.8 K/uL (1.8-8.0); Basophils % 0.9 % (0-1.3); Eosinophils % 1.6 % (0-4.4); Hematocrit 33.8 % (39.6-49.0); Lymphocytes % 3.1 % (15.3-44.8); MCH 25.9 pg (27.0-35.0); MCV 80.4 fL (80-100); MPV 8.8 fL (7.6-11.3); Monocytes % 5.1 % (3.3-12.3)
[2017-08-28 05:22] LABS: Albumin 3.7 g/dL (3.2-5.5); Potassium 3.9 mEq/L (3.6-5.0); Protein, Total 6.5 g/dL (6.0-8.3)
[2017-08-28 05:35] LABS: Bilirubin Total 0.8 mg/dL (0.3-1.2)
[2017-08-28 06:38] VITALS: BMI 22.5
[2017-08-28] MEDS: INSULIN -REGULAR HUMAN 50 UNIT/0.5 ML ML SQ SCH ×2 (07:30→12:24)
[2017-08-28] MEDS: BOSUTINIB 400 MG PO SCH (07:57)
[2017-08-28] MEDS: SAXAGLIPTIN HCL 5 MG PO SCH (07:57)
[2017-08-28 08:03] VITALS: TEMP 97.8
[2017-08-28] MEDS ORDERED: NA CHLORIDE 0.9% 1,000 ML IV SCH (08:10)
--- NOTE | 2017-08-28 08:11 | P.PN ---
Subjective Date of Service: 08/28/17 Primary Care Provider: None Chief Complaint: Respiratory failure Patient is very hypoxic is currently on 95% oxygen on BiPAP denies any shortness of breath repeat blood gases again confirmed significant hypoxemia denies any cough congestion Review of Systems General: Weakness Respiratory: Shortness of Breath Physical Examination - Vital Signs Temperature: 97.8 F Blood Pressure: 134/74 Pulse: 64 Respirations: 22 Pulse Ox (%): 86 - Physical Exam General: Alert, Oriented x3 HEENT: Atraumatic Neck: Supple Respiratory: Clear to auscultation bilaterally Cardiovascular: No edema, Regular rate/rhythm - Studies Medications List Reviewed: Yes Assessment & Plan - Problems (Diagnosis) (1) Hypoxemia Current Visit: Yes Status: Acute Plan: Patient is very hypoxic is on BiPAP high concentrations of oxygen INR is therapeutic patient's creatinine is elevated awaiting 2D echo you probably has a significant shunt his white count is also very elevated blood pressure stable I have ordered repeat blood gases ABGs pending
[2017-08-28] MEDS: FUROSEMIDE 40 MG TABLET PO SCH (08:41)
[2017-08-28] MEDS: SPIRONOLACTONE 25 MG TABLET PO SCH (08:41)
[2017-08-28] MEDS: ALLOPURINOL 300 MG TAB PO SCH (08:41)
[2017-08-28] MEDS: METOPROLOL XL 100 MG TAB PO SCH (08:41)
[2017-08-28] MEDS: PANTOPRAZOLE 40 MG INJ IVP SCH (08:42)
[2017-08-28] MEDS: ISOSORBIDE DINIT 5 MG TAB PO SCH (08:42)
[2017-08-28] MEDS: predniSONE 20 MG TAB PO SCH (08:42)
[2017-08-28] MEDS: HYDRALAZINE HCL 25 MG TABLET PO SCH (08:42)
[2017-08-28] MEDS: METOCLOPRAMIDE 5 MG TAB PO SCH (08:42)
--- NOTE | 2017-08-28 10:55 | CON ---
Date of Consultation: 08/24/2017 Reason For Consultation: Abdominal distention. History Of Present Illness: Mr. Aquino is a 77-year-old man who is a very poor historian. He has h istory of CLL, hypoxemia and has generalized GI distention. As a result, I have been consulted. The patient denies any significant abdominal pain. His abdominal pain involving the upper has improv ed. Denies any hematemesis, melena, however, has chronic constipation. Denies any odynophagia, dysp hagia. NG tube was inserted yesterday and he is feeling better after that. He has normal appetite. Denies any fever, chills. Past Medical History: As elaborated above. In addition to hypertension, diabetes. Some form of parvez rodegenerative disease. Past Surgical History: Not related to above. Family History: Denies any gastrointestinal malignancy in the family. Social History: No alcohol or tobacco. Psychiatric History: None. Allergy To Medications: Reviewed in the chart. Review of Systems: General: Progressive weight loss. No fever or chills. No travel history. GI: As elaborated above. Hepatologic: Denies any history of jaundice, hepatitis, any other liver affliction. Pulmonary: Has been hypoxemic, short of breath, however, no other specifics known. Cardiac: Denies any palpitation or heart murmur. Neuroendocrine: None. Neuropsychiatric: None. Musculoskeletal: Very hard to ambulate, however, no arthralgia, myalgia. Dermatologic: None. Physical Examination: General: Elderly male, at this time no other acute distress noted. Hemodynamic respiratory profile within normal range. HEENT: Atraumatic, normocephalic. Oropharynx is clear. Neck: Supple. No lymphadenopathy. Trachea central in position. Mild pallor. NG tube is revealing normal biliary fluid. Chest: Clear to auscultation, percussion, however, poor air exchange. Cardiac: S1, S2 are irregular. Abdomen: Soft, nontender, nondistended. Excellent bowel sounds, somewhat tympanitic. No hepatomega ly. No splenomegaly. No ascites. No succussion splash. Neurologic: Alert and oriented x3. Very sluggish, however, no focal findings noted. Dermatologic: Decreased skin turgor throughout. Extremities: Upper and lower extremities are normal, symmetrical, no pitting edema noted. Diagnostic Data: Reviewed and analyzed. Impression, Plan, Recommendations: Mr. Aquino is a 77-year-old gentleman, who is hypoxemic at this time although he is not complaining of shortness of breath. He has gastrointestinal distention. How ever, I believe in this case this could be more consistent with [place]'s syndrome than anything acut e. 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 Gastroparesis due to above condi tion as the primary disease is also possibility. In this case, he needs to be supportively treated. I believe he will not additionally benefit from N GT, we can withdraw it and start him slow diet. Unless he has any acute symptom, we should not do an y aggressive measure. In addition to that, given the hypoxemia, he does not qualify for any invasive procedure. I have had long discussion with the patient and his family members regarding the condition, they have good understanding, they are agreeable. GATO/GLENN Voice ID: [id number] Report ID: [id number]
[2017-08-28 11:56] LABS: Blood Gas Oxyhemoglobin 81.6 % (94-97); Blood O2 Saturation 84.2 % (92-98.5)
[2017-08-28 12:39] VITALS: O2SAT 89
--- NOTE | 2017-08-28 12:59 | ECHO ---
HEIGHT: 5 ft 9 in WEIGHT: 152 lb 11.2 oz DATE OF STUDY: 08/28/[address]: Klarissa Pacheco MD 2-DIMENSIONAL: YES M.MODE: YES DOPPLER: YES COLOR FLOW: YES TDS: YES PORTABLE: NO DEFINITY: NO BUBBLE STUDY: NO DIAGNOSIS: HISTORY OF CLL CARDIAC HISTORY: CATHERIZATION: YES SURGERY: NO PROSTHETIC VALVE: NO PACEMAKER: YES MEASUREMENTS (cm) DIASTOLIC (NORMALS) SYSTOLIC (NORMALS) IVSd 0.8 (0.6-1.2) LA Diam 4.3 (1.9-4.0) LVEF 31% LVIDd 6.7 (3.5-5.7) LVIDs 5.7 (2.0-3.5) %FS 15% LVPWd 1.0 (0.6-1.2) Ao Diam 3.3 (2.0-3.7) 2 DIMENSIONAL ASSESSMENT: RIGHT ATRIUM: DILATED LEFT ATRIUM: DILATED RIGHT VENTRICLE: PACEMAKER, DILATED LEFT VENTRICLE: DILATED TRICUSPID VALVE: NORMAL MITRAL VALVE: NORMAL PULMONIC VALVE: NORMAL AORTIC VALVE: NORMAL PERICARDIAL EFFUSION: NONE AORTIC ROOT: NORMAL LEFT VENTRICULAR WALL MOTION: GLOBAL HYPOKINESIS. DOPPLER/COLOR FLOW: MILD MITRAL AND TRICUSPID REGURGITATION. SEVERE PULMONARY HYPERTENSION. ESTIMATED RIGHT VENTRICULAR SYSTOLIC PRESSURE 65mmHg. COMMENTS: DEPRESSED LEFT VENTRICULAR EJECTION FRACTION WITH FOUR CHAMBER DILATATION. PACEMAKER IN RIGHT VENTRICLE. MILD MITRAL AND TRICUSPID REGURGITATION. SEVERE PULMONARY HYPERTENSION. TECHNOLOGIST: Alissa HAQUE
--- NOTE | 2017-08-28 13:34 | P.PN ---
Subjective Date of Service: 08/28/17 Primary Care Provider: None Chief Complaint: Respiratory failure Patient seen and examined at bedside with RN. Case reviewed. Pt denies having any nausea. Tolerating diet well now. Currently having Respiratory distress and on Non-breather right now Saturating at 90%. Review of Systems General: As per HPI Physical Examination - Vital Signs Temperature: 97.8 F Blood Pressure: 126/64 Pulse: 61 Respirations: 22 Pulse Ox (%): 89 - Physical Exam General: Alert, In no apparent distress, Mild distress HEENT: Atraumatic, PERRLA, EOMI Neck: Supple, JVD not distended Respiratory: Normal air movement, Rhonchi/gurgles Cardiovascular: Regular rate/rhythm, Normal S1 S2 Gastrointestinal: Normal bowel sounds, Soft and benign, Non-distended, No tenderness Musculoskeletal: No tenderness Integumentary: No rashes Neurological: Normal speech, Normal tone, Normal affect Lymphatics: No axilla or inguinal lymphadenopathy - Studies Medications List Reviewed: Yes Assessment & Plan - Problems (Diagnosis) (1) Abdominal pain Onset Date: 08/25/17 Current Visit: Yes Status: Acute Plan: Improved now. No nausea and Vomiting. Tolerating Diet well. -CT with Gastric Distention -Most likely 2/2 Gastropresis -NG tube removed. Now on FLD -Gastric Emptying + for Delayed Emptying. -GI consulted. Appreciated Reccs -Reglan 5mg PO BID Qualifiers: Abdominal location: generalized Qualified Code(s): R10.84 - Generalized abdominal pain (2) Intractable nausea and vomiting Onset Date: 08/25/17 Current Visit: Yes Status: Acute Plan: Most likely 2.2 to gastropresis. Not Nauseous now. -Zofran PRN and Reglan Qualifiers: Vomiting type: unspecified Qualified Code(s): R11.2 - Nausea with vomiting , unspecified (3) Gastric distention Onset Date: 08/25/17 Current Visit: Yes Status: Acute Plan: See # 1 (4) Respiratory distress Current Visit: Yes Status: Acute Plan: Respiratory Distress. On a Non Re-breather Mask today -ABG with Hypoxia -Xray WNL -CT Chest WNL -Duonebs -Pulm Consulted. -Echo with Severe Pulm Hypertension (5) Congestive heart failure Onset Date: 08/25/17 Current Visit: Yes Status: Chronic Plan: Xray with mild CHF and pulmonary Edema. -Lasix 40mg BID -ECHO EF with 31%. Pt with a pacemaker Qualifiers: Qualified Code(s): I50.9 - Heart failure, unspecified (6) Diabetes Onset Date: 08/25/17 Current Visit: Yes Status: Chronic Plan: Will Restart Home medication. Qualifiers: Diabetes mellitus type: type 2 Diabetes mellitus terminal press operator insulin use: with terminal press operator use Diabetes mellitus complication status: without complication Qualified Code(s): E11.9 - Type 2 diabetes mellitus without complications; Z79.4 - half-way (current) use of insulin (7) Hypertension Onset Date: 08/25/17 Current Visit: Yes Status: Chronic Plan: Will restart home medication Qualifiers: Hypertension type: essential hypertension Qualified Code(s): I10 - Essential (primary) hypertension (8) Status post placement of cardiac pacemaker Current Visit: Yes Status: Chronic Plan: Stable. (9) CLL (chronic lymphocytic leukemia) Onset Date: 08/25/17 Current Visit: Yes Status: Chronic Plan: In remission Discharge Plan: Other Plan to discharge in: 72 Hours - Code Status/Comfort Care Code Status Assessed: Yes Critical Care: No
[2017-08-28] MEDS ORDERED: NOREPINEPHRINE 4 MG in D5W 250 ML IV PRN (13:58)
[2017-08-28] MEDS ORDERED: EPINEPHRINE 1 MG/1 ML IV ONE (14:23)
[2017-08-28] MEDS ORDERED: EPINEPHrine 1 MG/10 ML SYR IV ONE (14:23)
[2017-08-28 16:58] VITALS: BP 140/97
[2017-08-28 17:07] LABS: Blood Gas Oxyhemoglobin 67.9 % (94-97); Blood O2 Saturation 69.4 % (92-98.5)
[2017-08-28 19:12] LABS: Smudge Cells PRESENT
[2017-08-28 19:13] LABS: Anisocytosis 2+; Blood Morphology Comment NOTED (NOT SEEN); Platelet Estimate INCR; Poikilocytosis 1+
--- NOTE | 2017-08-28 20:13 | P.DS ---
Admission Date: 08/26/17 Discharge Date: 08/28/17 Primary Care Provider: None Disposition: Reason for Admission: Respiratory failure Consultations: Cardiology Pulmonology Oncology - Problems (1) Abdominal pain Onset Date: 08/25/17 Status: Acute Qualifiers: Abdominal location: generalized Qualified Code(s): R10.84 - Generalized abdominal pain (2) Intractable nausea and vomiting Onset Date: 08/25/17 Status: Acute Qualifiers: Vomiting type: unspecified Qualified Code(s): R11.2 - Nausea with vomiting , unspecified (3) Gastric distention Onset Date: 08/25/17 Status: Acute (4) Respiratory distress Status: Acute (5) Congestive heart failure Onset Date: 08/25/17 Status: Chronic Qualifiers: Qualified Code(s): I50.9 - Heart failure, unspecified (6) Diabetes Onset Date: 08/25/17 Status: Chronic Qualifiers: Diabetes mellitus type: type 2 Diabetes mellitus terminologist insulin use: with terminologist use Diabetes mellitus complication status: without complication Qualified Code(s): E11.9 - Type 2 diabetes mellitus without complications; Z79.4 - jail (current) use of insulin (7) Hypertension Onset Date: 08/25/17 Status: Chronic Qualifiers: Hypertension type: essential hypertension Qualified Code(s): I10 - Essential (primary) hypertension (8) Status post placement of cardiac pacemaker Status: Chronic (9) CML (chronic myelocytic leukemia) Status: Acute (10) Cardiopulmonary arrest Status: Acute Brief History of Present Illness: This is a 77-year-old male with significant past medical history of high blood pressure, diabetes, CML, status post pacemaker placement who presented to the ED complaining of having some nausea vomiting and abdominal pain. Patient stated that the abdominal pain is generalized and started about 2-3 days ago it got progressively worse. Pain is intermittent and is more in the epigastric area than the other areas. Pain is dull in nature and does not radiate anywhere else. Patient also noted that he has been nauseous and is unable to tolerate any p.o. intake and had vomiting x1 at home as well. In the ED patient had a KUB done which was consistent with possible SBO and his abdominal CT which was concerning for gastric distention and no SBO. Medicine team was consulted to admit the patient for intractable nausea and vomiting along with gastric distention. Hospital Course: This is a 77-year-old male who was initially admitted to the hospital for gastric distension. Over the course of the hospital stay here patient had a gastric emptying study done here which was consistent with delayed emptying and patient was diagnosed with gastroparesis and was started on Reglan. GI was consulted who recommended the patient be placed on Protonix and Reglan and advance diet if no nausea or vomiting is noted. Patient had no nausea and vomiting and was able to tolerate a full liquid diet and thus was advanced to a GI soft diet. However while here in the hospital patient also developed respiratory distress. ABGs was done which was consistent with low PO2 and within normal ranges of the rest of the lab work. Chest x-ray and CT chest was done which were consistent with just small purulent effusion in no acute abnormality. 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 Patient was placed on a non-rebreather and was saturating at 90-93%. Overnight patient however required BiPAP to keep the saturations about 92%. Today patient was weaned off to a non-rebreather during lunchtime however was unable to keep his saturations above 92% and thus was placed back on BiPAP and was saturating at 92% after that. Patient went to the bathroom and was being assisted back to the bed by PROMOTIONAL MARKETING ANALYST where she noticed that he was getting short of breath. Patient was placed back on BiPAP on was saturating 67%. Respiratory was paged, at the same time the patient lost the pulse and code 99 was called. Patient was resuscitated with 3 rounds of epinephrine and intubation. Patient was able to be successfully resuscitated and was transferred to the ICU however up on arrival in the ICU bed he lost his pulse again and was resuscitated again. 2 rounds of epinephrine was given with no change in the cardiopulmonary status. ABGs were drawn which were consistent with metabolic acidosis and hypoxemia. Patient was still saturating at 67-50% and continued to have no pulse. At that time family was contacted. The was informed about the patient's condition and poor prognosis given the chronic nature of his disease process. patient's made a decision to stop all the external measures and and asked for the patient to pass naturally. At that time resuscitation measures were stopped and patient was pronounced at 2:24 p.m after confirming no cardiac motion with a bedside ultrasound. Vital Signs/Physical Exam: Temp Pulse Resp BP Pulse Ox 97.8 F 93 H 22 H 140/97 H 94 08/28/17 13:33 08/28/17 13:55 08/28/17 13:33 08/28/17 13:55 08/28/17 13:55 General: Other () Cardiovascular: Other (No cardiac Motion Seen with U/S) Laboratory Data at Discharge: WBC 82.6 K/uL (4.3-10.9) H* 08/28/17 04:37 Hgb 10.9 g/dL (13.6-17.9) L 08/28/17 04:37 Hct 33.8 % (39.6-49.0) L 08/28/17 04:37 Plt Count 430 K/uL (152-406) H 08/28/17 04:37 PT 47.4 SECONDS (9.5-12.5) H 08/28/17 04:37 INR 3.96 08/28/17 04:37 Sodium 134 mEq/L (135-145) L 08/28/17 04:37 Potassium 3.9 mEq/L (3.6-5.0) 08/28/17 04:37 BUN 40 mg/dL (6-20) H 08/28/17 04:37 Creatinine 1.50 mg/dL (0.61-1.24) H 08/28/17 04:37 Glucose 191 mg/dL (65-120) H 08/28/17 04:37 Phosphorus 4.1 mg/dL (2.5-4.3) D 08/27/17 06:05 Magnesium 1.7 mg/dL (1.8-2.5) L 08/27/17 06:05 Total Bilirubin 0.8 mg/dL (0.3-1.2) 08/28/17 04:37 AST 31 IU/L (10-42) 08/28/17 04:37 ALT 19 IU/L (10-60) 08/28/17 04:37 Alkaline Phosphatase 55 IU/L (42-121) 08/28/17 04:37 B-Natriuretic Peptide 441 pg/ml (<=100) H 08/24/17 18:44 Lipase 20 U/L (22-51) L 08/24/17 11:15 Home Medications: Allopurinol 300 mg PO DAILY 01/28/17 Atorvastatin Calcium 20 mg PO BEDTIME 01/28/17 Glipizide [Glucotrol] 10 mg PO BID 01/28/17 Hydralazine HCl 50 mg PO TID 01/28/17 Isosorbide Dinitrate 10 mg PO BID 01/28/17 Metoprolol Succinate [Toprol Xl] 200 mg PO DAILY 01/28/17 Omeprazole 20 mg PO DAILY 01/28/17 Saxagliptin HCl [Onglyza] 5 mg PO DAILY 01/28/17 Spironolactone 25 mg PO DAILY 01/28/17 Tiotropium [Spiriva Handihaler*] 18 mcg IH DAILY 01/28/17 Warfarin Sodium 5 mg PO DAILY 01/28/17 Bosutinib [Bosulif] 400 mg PO DAILY 01/29/17 Furosemide 40 mg PO DAILY #30 01/29/17 Spironolactone [Aldactone*] 12.5 mg PO DAILY #15 tab 01/29/17
== END 2017-08-28 14:24 | disposition expired | DRG 391 ==
LOC: ER 10:17 → OBSVTOIN 16:13 → INTOOBSV 16:13 → ERHOLD 16:13 → 4TH 18:06 → OBSVTOIN 08-26 14:39 → 3RD-ICU 08-28 14:20
PROVIDERS: ADMIT Family Medicine; ATTEND Family Medicine
DX: I46.9 Cardiac arrest, cause unspecified; E87.2 Acidosis; E11.9 Type 2 diabetes mellitus without complications; I10 Essential (primary) hypertension; Z79.4 Long term (current) use of insulin; J96.01 Acute respiratory failure with hypoxia; K31.84 Gastroparesis; K31.89 Other diseases of stomach and duodenum; R10.84 Generalized abdominal pain; I50.9 Heart failure, unspecified; Z95.0 Presence of cardiac pacemaker; C91.10 Chronic lymphocytic leukemia of B-cell type not having achieved remission
CPT/HCPCS: 36415; 71045; 71046; 71250; 74018; 74176; 78264; 80048; 80053; 80076; 81003; 82805; 82962; 83605; 83690; 83735; 83880; 84100; 84443; 85025; 85610; 93005; 93306; 94660; 97163; 99285; A9541; C9113; G0378; J0171; J2405; J2765; J3010; J7030; J7060; J7512